=== PATIENT | male | born 1975 | race Caucasian/White ===

== ENCOUNTER 2016-04-22 17:10 | Emergency (ER) | payer OTHER ==
[~2016-04-22] VITALS: Ht 177.8 cm; Wt 153.6 kg
[~2016-04-22 17:10] MED LIST: ADVAIR 500/501 DISK IH; APRESOLINE100 MG PO; ASCOMP WITH CO1 EACH PO; AUGMENTIN875 MG PO; CLONIDINE HCL0.1 MG PO; HYDROCHLOROTH12.5 M3 PO; LISINOPRIL-HCT1 EAC3 PO; LISINOPRIL20 MG PO; Motrin PO; NIFEDIPINE ER60 MG PO; PROAIR HFA8.5 GM IH; PROCARDIA XL90 MG PO; TRAMADOL HCL50 MG PO; ULTRAM50 MG PO
[2016-04-22 17:53] LABS: HEMATOCRIT 43.2 % (38.0-50.0); MCH 29.1 PG (29.0-34.0); MCHC 33.8 G/DL (30.0-36.0); MCV 86.1 FL (86-99); MEAN PLAT.VOLUME 11.1 uM^3 (9.0-12.4); PLATELET COUNT 248 K/uL (156-360); RBC DIS.WIDTH-CV 12.8 % (11.8-14.6); RBC DIS.WIDTH-SD 39.1 % (39-53); RED BLOOD COUNT 5.02 M/uL (4.00-5.50); WHITE BLOOD COUNT 16.1 K/uL (4.1-10.2)
[2016-04-22 18:02] LABS: CHLORIDE 108 mEq/L (99-109); POTASSIUM 4.2 mEq/L (3.7-5.4); SODIUM 139 mEq/L (136-147)
[2016-04-22 18:04] LABS: GLUCOSE 86 mg/dL (70-99)
[2016-04-22 18:06] LABS: ANION GAP 8 MEQ/L (2-14)
[2016-04-22 18:08] LABS: GFR ESTIMATE (CALCULATED) > 59 mL/min/
[2016-04-22 18:09] LABS: UREA NITROGEN (BUN) 15 mg/dL (9-23)
[2016-04-22] MEDS ORDERED: PREDNISONE20 MG PO (19:51)
[2016-04-22] MEDS ORDERED: LEVAQUIN750 MG PO (19:51)
[2016-04-22 20:09] VITALS: BP 145/89
== END 2016-04-22 20:13 | disposition home or self-care (01) ==
LOC: EME 17:10
PROVIDERS: Physician Assistant
DX: J18.9 Pneumonia, unspecified organism (principal); J45.901 Unspecified asthma with (acute) exacerbation; F17.210 Nicotine dependence, cigarettes, uncomplicated; G89.29 Other chronic pain; I10 Essential (primary) hypertension
CPT/HCPCS: 71020; 80048; 85027; 94640; 94640 76; 99281; 99285; J2930; J7030

== ENCOUNTER → 2016-06-05 | Outpatient (CLI) | payer OTHER ==
[~2016-06-05] MED LIST changes: +ALEVE220 M2 PO; +LEVAQUIN750 MG PO; +PREDNISONE20 MG PO
== END | disposition home or self-care (01) ==
LOC: RES 08:42
DX: R94.2 Abnormal results of pulmonary function studies (principal); R06.00 Dyspnea, unspecified; R53.83 Other fatigue
CPT/HCPCS: 94060; 94726; 94729

== ENCOUNTER 2016-06-14 11:03 | Day surgery (SDC) | payer OTHER ==
[~2016-06-14] VITALS: Ht 177.8 cm; Wt 104.0 kg
== END 2016-06-14 18:50 | disposition home or self-care (01) ==
LOC: CATH 11:03 → OPR 13:00 → CATH 18:50
DX: I42.9 Cardiomyopathy, unspecified (principal); I27.2 Other secondary pulmonary hypertension; R07.9 Chest pain, unspecified; R94.31 Abnormal electrocardiogram [ECG] [EKG]; E66.01 Morbid (severe) obesity due to excess calories; Z68.42 Body mass index [BMI] 45.0-49.9, adult; J45.909 Unspecified asthma, uncomplicated; I10 Essential (primary) hypertension
CPT/HCPCS: 93005; C1769; C1887; C1894; J1200; J1644; J1940; J2250; J2765; J2930; J3010

== ENCOUNTER 2016-09-14 15:26 | Emergency (ER) | payer OTHER ==
[~2016-09-14] VITALS: Ht 177.8 cm; Wt 148.9 kg
[2016-09-14 17:27] LABS: HEMATOCRIT 42.9 % (38.0-50.0); MCH 29.2 PG (29.0-34.0); MCHC 33.3 G/DL (30.0-36.0); MCV 87.7 FL (86-99); MEAN PLAT.VOLUME 10.8 uM^3 (9.0-12.4); PLATELET COUNT 250 K/uL (156-360); RBC DIS.WIDTH-CV 12.9 % (11.8-14.6); RBC DIS.WIDTH-SD 41.6 % (39-53); RED BLOOD COUNT 4.89 M/uL (4.00-5.50); WHITE BLOOD COUNT 9.7 K/uL (4.1-10.2)
[2016-09-14 17:49] LABS: CHLORIDE 107 mEq/L (99-109); POTASSIUM 4.3 mEq/L (3.7-5.4); SODIUM 142 mEq/L (136-147)
[2016-09-14 17:51] LABS: GLUCOSE 85 mg/dL (70-99)
[2016-09-14 17:52] LABS: ANION GAP 7 MEQ/L (2-14)
[2016-09-14 17:54] LABS: GFR ESTIMATE (CALCULATED) > 59 mL/min/
[2016-09-14 17:55] LABS: UREA NITROGEN (BUN) 16 mg/dL (9-23)
[2016-09-14 17:59] LABS: TROP-I INTERPRETATION NEGATIVE; TROPONIN-I < 0.01 ng/mL (0.0-0.30)
[2016-09-14 19:16] VITALS: BP 150/103
== END 2016-09-14 19:19 | disposition home or self-care (01) ==
LOC: EME 15:26
DX: R07.9 Chest pain, unspecified (principal); I25.2 Old myocardial infarction; I50.9 Heart failure, unspecified; I10 Essential (primary) hypertension; F17.210 Nicotine dependence, cigarettes, uncomplicated; E66.9 Obesity, unspecified; J45.909 Unspecified asthma, uncomplicated
CPT/HCPCS: 71020; 80048; 83880; 84484; 85027; 93005; 99281; 99284

== ENCOUNTER 2016-09-22 13:57 | Observation (INO) | payer OTHER ==
[~2016-09-22] VITALS: Ht 177.8 cm; Wt 151.4 kg
[2016-09-22] MEDS ORDERED: SPIRONOLACTONE25 MG PO (14:23)
[2016-09-22] MEDS ORDERED: CARVEDILOL25 MG PO (14:23)
[2016-09-22] MEDS ORDERED: VENTOLIN HFA18 GM IH (14:24)
[2016-09-22] MEDS ORDERED: ENTRESTO 97 MG1 EACH PO (14:29)
[2016-09-22 15:18] LABS: HEMATOCRIT 44.6 % (38.0-50.0); MCH 29.3 PG (29.0-34.0); MCHC 33.9 G/DL (30.0-36.0); MCV 86.6 FL (86-99); MEAN PLAT.VOLUME 11.2 uM^3 (9.0-12.4); PLATELET COUNT 266 K/uL (156-360); RBC DIS.WIDTH-CV 12.8 % (11.8-14.6); RBC DIS.WIDTH-SD 40.4 % (39-53); RED BLOOD COUNT 5.15 M/uL (4.00-5.50); WHITE BLOOD COUNT 12.8 K/uL (4.1-10.2)
[2016-09-22 15:27] LABS: CHLORIDE 105 mEq/L (99-109); POTASSIUM 4.5 mEq/L (3.7-5.4); SODIUM 135 mEq/L (136-147)
[2016-09-22 15:29] LABS: GLUCOSE 102 mg/dL (70-99)
[2016-09-22 15:31] LABS: ANION GAP 6 MEQ/L (2-14)
[2016-09-22 15:33] LABS: GFR ESTIMATE (CALCULATED) > 59 mL/min/
[2016-09-22 15:34] LABS: UREA NITROGEN (BUN) 13 mg/dL (9-23)
[2016-09-22 15:40] LABS: TROP-I INTERPRETATION NEGATIVE; TROPONIN-I < 0.01 ng/mL (0.0-0.30)
[2016-09-22] MEDS ORDERED: TRAMADOL HCL50 MG PO (18:33)
[2016-09-22] MEDS ORDERED: LASIX40 MG PO (18:34)
[2016-09-22] MEDS ORDERED: ADVIL200 MG PO (18:34)
[2016-09-22 19:33] VITALS: BP 184/115
[2016-09-22 21:55] VITALS: BP 151/96
[2016-09-22 22:01] LABS: ADD MIUA? NO; BILIRUBIN NEGATIVE; BLOOD NEGATIVE; COLOR STRAW ((YELLOW)); GLUCOSE (STRIP) NEGATIVE; KETONES NEGATIVE; LEUKOCYTES NEGATIVE; NITRITE NEGATIVE; PROTEIN (STRIP) NEGATIVE; SPECIFIC GRAVITY 1.005 (1.000-1.030); UROBILINOGEN 0.2 MG/DL (0.2-1.0)
[2016-09-22 22:37] LABS: TROP-I INTERPRETATION NEGATIVE; TROPONIN-I 0.02 ng/mL (0.0-0.30)
[2016-09-23 00:19] VITALS: BP 163/100
[2016-09-23 04:22] VITALS: BP 148/80
[2016-09-23 07:02] LABS: ANION GAP 7 MEQ/L (2-14); CHLORIDE 105 MEQ/L (99-109); GFR ESTIMATE (CALCULATED) > 59 mL/min/; GLUCOSE 94 mg/dL (70-99); POTASSIUM 4.1 MEQ/L (3.7-5.4); SAMPLE HEMOLYSIS CHECK 0; SAMPLE ICTERIC CHECK 0; SAMPLE LIPEMIA CHECK 0; SODIUM 141 MEQ/L (136-147); TROP-I INTERPRETATION NEGATIVE; TROPONIN-I 0.02 ng/mL (0.0-0.30); UREA NITROGEN (BUN) 14 mg/dL (9-23)
[2016-09-23 09:34] VITALS: BP 175/110
[2016-09-23 12:19] VITALS: BP 143/93
[2016-09-23] MEDS ORDERED: ADALAT CC90 MG PO (13:47)
[2016-09-23] MEDS ORDERED: AZITHROMYCIN500 M1 PO (13:48)
== END 2016-09-23 14:58 | disposition home or self-care (01) ==
LOC: EME 13:57 → EDOF 18:39 → 5WEST 19:17
PROVIDERS: Hospitalist
DX: R07.9 Chest pain, unspecified (principal); I11.0 Hypertensive heart disease with heart failure; I50.22 Chronic systolic (congestive) heart failure; I42.0 Dilated cardiomyopathy; D72.829 Elevated white blood cell count, unspecified; J45.909 Unspecified asthma, uncomplicated; E66.01 Morbid (severe) obesity due to excess calories; Z68.42 Body mass index [BMI] 45.0-49.9, adult; E78.5 Hyperlipidemia, unspecified; Z91.041 Radiographic dye allergy status
CPT/HCPCS: 71020; 71250; 80048; 81003; 83880; 84484; 85027; 93005; 94640; 94760; 99202; 99281; 99285; G0378; J0456; J0696; J1650; J1940; J7050

== ENCOUNTER 2016-12-05 13:54 | Emergency (ER) | payer OTHER ==
[~2016-12-05] VITALS: Ht 177.8 cm; Wt 142.7 kg
[~2016-12-05 13:54] MED LIST changes: +ADALAT CC90 MG PO; +ADVIL200 MG PO; +AZITHROMYCIN500 M1 PO; +CARVEDILOL25 MG PO; +ENTRESTO 97 MG1 EACH PO; +LASIX40 MG PO; +SPIRONOLACTONE25 MG PO; +VENTOLIN HFA18 GM IH
[2016-12-05] MEDS ORDERED: CLEOCIN300 MG PO (16:18)
[2016-12-05] MEDS ORDERED: PERCOCET 5/31 TABLET PO (16:18)
[2016-12-05 17:29] VITALS: BP 178/104
== END 2016-12-05 17:29 | disposition home or self-care (01) ==
LOC: EME 13:54
PROC: 0H98XZZ Drainage of Buttock Skin, External Approach (ICD-10-PCS; principal; 2016-12-05)
DX: L02.31 Cutaneous abscess of buttock (principal); I10 Essential (primary) hypertension; F17.200 Nicotine dependence, unspecified, uncomplicated
CPT/HCPCS: 87070; 87075; 87077; 87147; 87186; 87205; 99281; 99283

== ENCOUNTER 2016-12-07 06:29 | Emergency (ER) | payer OTHER ==
[~2016-12-07] VITALS: Ht 177.8 cm; Wt 142.0 kg
[~2016-12-07 06:29] MED LIST changes: +CLEOCIN300 MG PO; +PERCOCET 5/31 TABLET PO
[2016-12-07 06:31] VITALS: BP 120/77
[2016-12-07] MEDS ORDERED: NAPROXEN500 MG PO (08:17)
== END 2016-12-07 08:35 | disposition home or self-care (01) ==
LOC: EME 06:29
PROC: 0H98XZZ Drainage of Buttock Skin, External Approach (ICD-10-PCS; principal; 2016-12-07)
DX: L02.31 Cutaneous abscess of buttock (principal); I10 Essential (primary) hypertension; I50.9 Heart failure, unspecified; J45.909 Unspecified asthma, uncomplicated; F17.200 Nicotine dependence, unspecified, uncomplicated
CPT/HCPCS: 99281; 99284

== ENCOUNTER 2016-12-09 08:15 | Emergency (ER) | payer OTHER ==
[~2016-12-09] VITALS: Ht 177.8 cm; Wt 143.3 kg
[~2016-12-09 08:15] MED LIST changes: +NAPROXEN500 MG PO
[2016-12-09 08:54] VITALS: BP 140/87
== END 2016-12-09 08:56 | disposition home or self-care (01) ==
LOC: EME 08:15
DX: Z48.02 Encounter for removal of sutures (principal); L02.31 Cutaneous abscess of buttock; I10 Essential (primary) hypertension; J45.909 Unspecified asthma, uncomplicated; F17.200 Nicotine dependence, unspecified, uncomplicated
CPT/HCPCS: 99281; 99283

== ENCOUNTER 2017-07-27 10:59 | Emergency (ER) | payer OTHER ==
[~2017-07-27] VITALS: Ht 177.8 cm; Wt 121.4 kg
[2017-07-27 12:27] VITALS: BP 158/111
== END 2017-07-27 12:27 | disposition home or self-care (01) ==
LOC: EME 10:59
DX: L72.3 Sebaceous cyst (principal); L08.89 Other specified local infections of the skin and subcutaneous tissue; G89.29 Other chronic pain; M25.561 Pain in right knee; M25.562 Pain in left knee; F17.200 Nicotine dependence, unspecified, uncomplicated; Z91.041 Radiographic dye allergy status; J45.909 Unspecified asthma, uncomplicated
CPT/HCPCS: 99281; 99283

== ENCOUNTER 2017-08-04 07:39 | Emergency (ER) | payer OTHER ==
[~2017-08-04] VITALS: Ht 177.8 cm; Wt 122.0 kg
[2017-08-04 08:24] LABS: HEMATOCRIT 42.4 % (38.0-50.0); HEMOGLOBIN 14.8 G/DL (12.5-16.6); MCH 31.7 PG (29.0-34.0); MCHC 34.9 G/DL (30.0-36.0); MCV 90.8 FL (86-99); PLATELET COUNT 268 K/uL (156-360); RBC DIS.WIDTH-CV 12.7 % (11.8-14.6); RBC DIS.WIDTH-SD 41.7 % (39-53); RED BLOOD COUNT 4.67 M/uL (4.00-5.50); WHITE BLOOD COUNT 9.4 K/uL (4.1-10.2)
[2017-08-04 08:35] LABS: CHLORIDE 104 mEq/L (99-109); POTASSIUM 3.4 mEq/L (3.7-5.4); SODIUM 141 mEq/L (136-147)
[2017-08-04 08:37] LABS: GLUCOSE 102 mg/dL (70-99)
[2017-08-04 08:40] LABS: CREATININE 0.8 mg/dL (0.6-1.3); GFR ESTIMATE (CALCULATED) > 59 mL/min/ (58.99-99999)
[2017-08-04 08:41] LABS: UREA NITROGEN (BUN) 13 mg/dL (9-23)
[2017-08-04 08:44] LABS: TROP-I INTERPRETATION NEGATIVE; TROPONIN-I 0.02 ng/mL (0.0-0.30)
[2017-08-04 11:16] VITALS: BP 140/78
== END 2017-08-04 11:16 | disposition home or self-care (01) ==
LOC: EME 07:39
DX: R07.89 Other chest pain (principal); F41.0 Panic disorder [episodic paroxysmal anxiety]; R06.02 Shortness of breath; I50.9 Heart failure, unspecified; J45.909 Unspecified asthma, uncomplicated; G89.29 Other chronic pain; M25.562 Pain in left knee; M25.561 Pain in right knee; G43.909 Migraine, unspecified, not intractable, without status migrainosus; I25.2 Old myocardial infarction; F17.200 Nicotine dependence, unspecified, uncomplicated; Z86.79 Personal history of other diseases of the circulatory system; Z79.51 Long term (current) use of inhaled steroids; Z91.041 Radiographic dye allergy status
CPT/HCPCS: 71046; 80048; 83880; 84484; 85027; 93005; 99281; 99285